=== PATIENT | male | born 1990 | race Two or more races ===

== ENCOUNTER 2021-10-16 10:52 | Emergency (ER) | payer SELFPAY ==
[~2021-10-16] VITALS: Ht 175.3 cm; Wt 250.0 kg
[2021-10-16 13:32] VITALS: BP 142/94
[2021-10-16] MEDS ORDERED: POLYSOL15 OP (14:11)
[2021-10-16] MEDS ORDERED: TETRACAINE HCL 0.5% OPTH(EYE) SOLN 4ML LEFTEYE ONE (14:15)
[2021-10-16] MEDS ORDERED: FLUORESCEIN SOD OPTH TEST STRIP LEFTEYE ONE (14:15)
== END 2021-10-16 14:24 | disposition home or self-care (01) ==
LOC: ER 11:11
DX: H10.9 Unspecified conjunctivitis (principal)